=== PATIENT | female | born 1990 | race Two or more races ===

== ENCOUNTER 2022-04-01 08:16 | Emergency (ER) | payer OTHER ==
[2022-04-01 08:21] VITALS: BMI 26.6
[2022-04-01] MEDS ORDERED: SODIUM CHLORIDE 1,000 ML IV STA (08:42)
[2022-04-01 09:38] VITALS: BP 103/68; PULSE 70; TEMP 98.1
[2022-04-01 10:16] LABS: BASO % 0.6 % (0-2.0); EOS % 2.6 % (0-4.5); HEMATOCRIT 38.5 % (32.4-45.2); HEMOGLOBIN 13.3 GM/dL (10.7-15.3); LYMPH % 27.1 % (8-40); MCH 32.5 pg (25.7-33.7); MCHC 34.7 g/dl (32.0-36.0); MEAN CELL VOLUME 93.7 fl (80-96); MEAN PLT VOLUME 8.4 fl (7.5-11.1); MONO % 6.3 % (3.8-10.2); NEUT % 63.4 % (42.8-82.8); PLATELET COUNT 214 10^3/uL (134-434); RBC 4.11 M/mm3 (3.60-5.2); RDW 12.9 % (11.6-15.6); WHITE BLOOD COUNT 7.9 K/mm3 (4.0-10.0)
[2022-04-01 10:22] LABS: CHLORIDE 107 mmol/L (98-107); SODIUM 140 mmol/L (136-145)
[2022-04-01 10:23] LABS: HCG,QUALITATIVE URINE Negative
[2022-04-01 10:24] LABS: CALCIUM 8.6 mg/dL (8.5-10.1); EPI CELLS 32 /uL (0-25.1); HYALINE CASTS 0 /uL (0-3.1); PH,URINE 6.5 (5.0-8.0); URINE APPEARANCE CLEAR; URINE BACTERIA 201 /uL (0-1359); URINE BILIRUBIN NEGATIVE (NEGATIVE); URINE COLOR YELLOW; URINE GLUCOSE (UA) NEGATIVE (NEGATIVE); URINE KETONE NEGATIVE (NEGATIVE); URINE LEUK ESTERASE NEGATIVE (NEGATIVE); URINE NITRITE NEGATIVE (NEGATIVE); URINE PROTEIN TRACE (NEGATIVE); URINE RBC 1393 /uL (0-23.9); URINE WBC 15 /uL (0-25.8)
[2022-04-01 10:25] LABS: ALBUMIN 3.6 g/dl (3.4-5.0); ANION GAP 6 MMOL/L (8-16); BLOOD UREA NITROGEN 9.8 mg/dL (7-18); CO2 27 mmol/L (21-32); GLUCOSE,RANDOM 66 mg/dL (74-106)
[2022-04-01 10:28] LABS: CREATININE 0.7 mg/dL (0.55-1.3); SGOT/AST 15 U/L (15-37); SGPT/ALT 24 U/L (13-61)
[2022-04-01 10:29] LABS: BILIRUBIN,TOTAL 0.6 mg/dL (0.2-1); TOT PROT 6.8 g/dl (6.4-8.2)
[2022-04-01 10:31] LABS: ALK PHOS 64 U/L (45-117)
== END 2022-04-01 10:59 | disposition home or self-care (01) ==
LOC: JER 08:16
DX: N93.9 Abnormal uterine and vaginal bleeding, unspecified (principal)
CPT/HCPCS: 36415; 80053; 81003; 84702; 84703; 85025; 86850; 86900; 86901; 87086; 99283-25

== ENCOUNTER 2023-01-17 20:07 | Emergency (ER) | payer OTHER ==
[2023-01-17 20:26] VITALS: BP 140/88; PULSE 83; RESP 20; TEMP 98.1; BMI 27.3
[2023-01-17 22:22] LABS: HEMATOCRIT 46.2 % (32.4-45.2); HEMOGLOBIN 15.4 GM/dL (10.7-15.3); MCH 31.8 pg (25.7-33.7); MCHC 33.4 g/dl (32.0-36.0); MEAN CELL VOLUME 95.3 fl (80-96); MEAN PLT VOLUME 8.8 fl (7.5-11.1); PLATELET COUNT 338 10^3/uL (134-434); RBC 4.84 M/mm3 (3.60-5.2); RDW 14.4 % (11.6-15.6); WHITE BLOOD COUNT 13.1 K/mm3 (4.0-10.0)
[2023-01-17 22:30] LABS: INR 1.06 (0.83-1.09); PROTHROMBIN TIME (PATIENT) 12.3 SEC (9.7-13.0)
[2023-01-17 23:08] LABS: ALBUMIN 3.7 g/dl (3.4-5.0); ALK PHOS 64 U/L (45-117); ANION GAP 7 MMOL/L (8-16); BILIRUBIN,TOTAL 0.7 mg/dL (0.2-1); BLOOD UREA NITROGEN 11.6 mg/dL (7-18); CALCIUM 9.1 mg/dL (8.5-10.1); CHLORIDE 107 mmol/L (98-107); CO2 20 mmol/L (21-32); CREATININE 0.8 mg/dL (0.55-1.3); GLUCOSE,RANDOM 89 mg/dL (74-106); MAGNESIUM 2.1 mg/dL (1.8-2.4); PHOSPHOROUS 4.4 mg/dL (2.5-4.9); SGOT/AST 74 U/L (15-37); SGPT/ALT 29 U/L (13-61); SODIUM 134 mmol/L (136-145); TOT PROT 8.4 g/dl (6.4-8.2)
== END 2023-01-18 01:20 | disposition home or self-care (01) ==
LOC: JER 20:07
DX: R07.9 Chest pain, unspecified (principal)
CPT/HCPCS: 36415; 71046-TC-FY; 80053; 82550; 82553; 83735; 84100; 84132; 84484; 84703; 85027; 85610; 93005; 93010; 99285-25

== ENCOUNTER 2024-01-24 06:29 | Emergency (ER) | payer OTHER ==
[2024-01-24 06:36] VITALS: TEMP 98.2; BMI 31.0
[2024-01-24 07:51] LABS: BASO % 0.8 % (0-2.0); EOS % 1.7 % (0-4.5); HEMOGLOBIN 14.7 GM/dL (10.7-15.3); LYMPH % 26.6 % (8-40); MCH 31.7 pg (25.7-33.7); MCHC 34.1 g/dl (32.0-36.0); MONO % 5.4 % (3.8-10.2); NEUT % 65.5 % (42.8-82.8); PLATELET COUNT 239 10^3/uL (134-434); RBC 4.62 M/mm3 (3.60-5.2); RDW 12.9 % (11.6-15.6); WHITE BLOOD COUNT 8.5 K/mm3 (4.0-10.0)
[2024-01-24] MEDS ORDERED: ACETAMINOPHEN INJECTION 100 ML IVPB ONE (08:04)
[2024-01-24] MEDS ORDERED: METOCLOPRAMIDE HCL INJECTION 10 MG/2 ML VIAL ONE (08:04)
[2024-01-24] MEDS: ACETAMINOPHEN 1000 MG/100 ML BAG IVPB ONE (08:10)
[2024-01-24] MEDS: SODIUM CHLORIDE 0.9% 500 ML INFUS.BAG IV ONE (08:10)
[2024-01-24] MEDS: METOCLOPRAMIDE HCL INJECTION 10 MG/2 ML VIAL IVPB ONE (08:11)
[2024-01-24 08:15] LABS: POTASSIUM 5.9 mmol/L (3.5-5.1)
[2024-01-24 08:17] LABS: CALCIUM 9.1 mg/dL (8.5-10.1)
[2024-01-24 08:18] LABS: ALBUMIN 3.3 g/dl (3.4-5.0); BLOOD UREA NITROGEN 10.4 mg/dL (7-18)
[2024-01-24 08:21] LABS: CREATININE 0.8 mg/dL (0.55-1.3)
[2024-01-24 08:22] LABS: BILIRUBIN,TOTAL 0.6 mg/dL (0.2-1); TOT PROT 7.8 g/dl (6.4-8.2)
[2024-01-24 09:07] VITALS: BP 136/80; PULSE 75; RESP 18
== END 2024-01-24 09:16 | disposition home or self-care (01) ==
LOC: JER 06:29
PROC: 3E033NZ Introduction of Analgesics, Hypnotics, Sedatives into Peripheral Vein, Percutaneous Approach (ICD-10-PCS; principal; 2024-01-24)
PROC: 3E033GC Introduction of Other Therapeutic Substance into Peripheral Vein, Percutaneous Approach (ICD-10-PCS; 2024-01-24)
DX: G44.209 Tension-type headache, unspecified, not intractable (principal); R11.0 Nausea
CPT/HCPCS: 36415; 70450-TC; 80053; 84703; 85025; 99284-25; J0131

== ENCOUNTER 2024-02-11 18:11 | Emergency (ER) | payer OTHER ==
[2024-02-11 18:29] VITALS: BP 102/80; PULSE 86; RESP 18; TEMP 98; BMI 33.2
[2024-02-11] MEDS ORDERED: DEXAMETHASONE SOD PHOSPHATE 10 MG/1 ML VIAL ONE (19:29)
[2024-02-11] MEDS: DEXAMETHASONE SOD PHOSPHATE 10 MG/1 ML VIAL IM ONE (19:33)
== END 2024-02-11 19:55 | disposition home or self-care (01) ==
LOC: JERFT 18:11 → JER 18:11 → JERFT 19:55
PROC: 3E023GC Introduction of Other Therapeutic Substance into Muscle, Percutaneous Approach (ICD-10-PCS; principal; 2024-02-11)
DX: R21 Rash and other nonspecific skin eruption (principal); L23.9 Allergic contact dermatitis, unspecified cause; L29.9 Pruritus, unspecified
CPT/HCPCS: 99284-25; J1100

== ENCOUNTER 2024-03-02 12:03 | Emergency (ER) | payer OTHER ==
[2024-03-02 12:25] VITALS: BP 123/74; PULSE 75; RESP 18; TEMP 98.9; BMI 31.4
== END 2024-03-02 13:38 | disposition home or self-care (01) ==
LOC: JERFT 12:03
DX: M25.571 Pain in right ankle and joints of right foot (principal)
CPT/HCPCS: 73610-TC-RT-FY; 73630-TC-RT-FY; 99283-25

== ENCOUNTER 2024-11-20 18:17 | Emergency (ER) | payer OTHER ==
[2024-11-20 18:27] VITALS: RESP 18; BMI 32.5
[2024-11-20] MEDS ORDERED: ACETAMINOPHEN 500 MG TABLET (FP) ONE (19:33)
[2024-11-20] MEDS: SODIUM CHLORIDE FOR INHALATION 3 ML VIAL.NEB IH ONE (19:37)
[2024-11-20] MEDS: ACETAMINOPHEN 500 MG TABLET (FP) PO ONE (19:37)
[2024-11-20 20:02] LABS: THROAT:GRP A STREP NOT DETECTED (NOTDETECTED)
[2024-11-20 20:59] VITALS: BP 116/85; PULSE 89
[2024-11-20 21:19] VITALS: TEMP 98.8
== END 2024-11-20 21:36 | disposition home or self-care (01) ==
LOC: JER 18:17 → JERFT 18:17
DX: J10.1 Influenza due to other identified influenza virus with other respiratory manifestations (principal); R50.9 Fever, unspecified; R51.9 Headache, unspecified; M79.10 Myalgia, unspecified site; R05.9 Cough, unspecified; R09.81 Nasal congestion; J34.89 Other specified disorders of nose and nasal sinuses; Z20.822 Contact with and (suspected) exposure to COVID-19
CPT/HCPCS: 0241U-QW; 87651; 99283-25